=== PATIENT | female | born 1985 | race Caucasian/White ===

== ENCOUNTER 2019-01-28 06:05 | Day surgery (SDC) | payer MEDICAID ==
[~2019-01-28] VITALS: Ht 162.6 cm; Wt 89.8 kg
[2019-01-28] MEDS ORDERED: LACTATED RINGER'S 1,000 ML IV ONE (06:30)
[2019-01-28 06:59] LABS: Hemoglobin 11.8 g/dL (12.2-16.2); Monocytes # (auto) 0.6 uL; White Blood Cell 10.2 10^3/uL (4.4-10.8)
[2019-01-28 07:01] LABS: Basophils # (auto) 0 uL; Basophils % (auto) 0.4 % (0.0-2.0); Eosinophils # (auto) 0.2 uL; Eosinophils % (auto) 1.5 % (0.0-7.0); Hematocrit 36.3 % (36.0-46.0); Lymphocytes # (auto) 2.7 uL; Lymphocytes % (auto) 26.4 % (10.0-50.0); Mean Corpuscular Hgb Conc. 32.4 g/dL (32.0-36.0); Mean Corpuscular Volume 80.2 fL (80.0-100.0); Monocytes % (auto) 5.7 % (0.0-12.0); Neutrophils # (auto) 6.7 uL; Platelet Count (auto) 347 10^3/uL (140-450); Red Blood Cells 4.52 10^6/uL (4.0-5.20); Red Cell Distribution Width 16.7 % (11.8-14.3)
[2019-01-28 07:20] LABS: INR < 0.93 (0.9-1.15)
[2019-01-28 07:28] LABS: Albumin 3.7 g/dL (3.4-5.0); Calcium 8.8 mg/dL (8.5-10.1); Potassium 3.8 mmol/L (3.5-5.1)
[2019-01-28 07:33] LABS: BUN/Creatinine Ratio 13.4; Bilirubin, Total 0.2 mg/dL (0.2-1.0); Total Protein 8.2 g/dL (6.4-8.2)
[2019-01-28 07:39] LABS: Beta HCG, Quantitative < 1 mlU/mL (1-3); Thyroid Stimulating Hormone 5.06 uIU/mL (0.358-3.74)
[2019-01-28 08:19] LABS: Urine Bacteria MANY /hpf (None Seen); Urine Blood 3+ /uL (Negative); Urine Specific Gravity 1.014 (1.001-1.035); Urine WBC 47 /hpf (0 - 5)
[2019-01-28] MEDS ORDERED: ceFAZolin 1GM/50ML 50 ML IV ONE (12:51)
[2019-01-28] MEDS ORDERED: MIDAZOLAM HCL 1MG/1ML-2 ML VIAL ONE (14:16)
[2019-01-28] MEDS ORDERED: MEPERIDINE HCL (25 MG/ML) 1ML VIAL ONE (14:16)
[2019-01-28] MEDS ORDERED: fentaNYL CITRATE 100 MCG/2 ML VL ONE (14:16)
[2019-01-28] MEDS ORDERED: PROPOFOL 10 MG/ML 20 ML IV ONE (14:54)
[2019-01-28] MEDS ORDERED: DexAMETHasone SOD PHOS 10MG/1ML VIAL INJ ONE (14:54)
[2019-01-28] MEDS ORDERED: KETOROLAC TROMETH 30 MG/ML 1ML VIAL ONE (14:54)
[2019-01-28] MEDS ORDERED: LACTATED RINGER'S 1,000 ML IV SCH (15:05)
[2019-01-28] MEDS ORDERED: ONDANSETRON HCL 4 MG/2 ML VIAL IV PRN (15:15)
[2019-01-28 15:49] VITALS: BP 127/70
[2019-01-28] MEDS ORDERED: ePHEDrine SULFATE 50 MG/ML AMP IV PRN (16:00)
[2019-01-28] MEDS ORDERED: MORPHINE SULFATE 4 MG/ML SYR/VIAL IV ONE (16:00)
[2019-01-28] MEDS ORDERED: ACCU-CHEK COMFORT CURVE STRIP VI ONE (16:00)
[2019-01-28] MEDS ORDERED: KETOROLAC TROMETH 15 mg/ml 1ML VL IV ONE (16:00)
[2019-01-28] MEDS ORDERED: MIDAZOLAM HCL 1MG/1ML-2 ML VIAL IV PRN (16:00)
[2019-01-28] MEDS ORDERED: LABETALOL HCL 5 MG/ML 4ML SYRINGE IV PRN (16:00)
[2019-01-28] MEDS ORDERED: HYDROmorphone HCL 2 MG/ML VL IV PRN (16:00)
[2019-01-28] MEDS ORDERED: ONDANSETRON HCL 4 MG/2 ML VIAL IV ONE (16:00)
[2019-01-28] MEDS ORDERED: MIDAZOLAM DRIP 50 mg/50mL 0 ML IV ONE (19:24)
== END 2019-01-28 15:59 | disposition home or self-care (01) ==
LOC: ER 06:05 → SUR 06:06 → ER 13:34 → SUR 15:59
PROVIDERS: ATTEND Specialist
DX: N85.01 Benign endometrial hyperplasia (principal); N93.8 Other specified abnormal uterine and vaginal bleeding; D64.9 Anemia, unspecified; E03.9 Hypothyroidism, unspecified; E66.9 Obesity, unspecified; Z79.899 Other long term (current) drug therapy; Z80.41 Family history of malignant neoplasm of ovary; Z80.3 Family history of malignant neoplasm of breast; Z68.34 Body mass index [BMI] 34.0-34.9, adult
CPT/HCPCS: 36415; 58558; 80053; 81001; 84443; 84702; 85025; 85610; 85730; 86850; 86900; 86901; 88305; J0690; J1100; J1885; J2175; J2250; J2704; J3010; J7030; J7120

== ENCOUNTER 2020-05-27 08:30 | Observation (INO) | payer MEDICAID ==
[~2020-05-27] VITALS: Ht 165.1 cm; Wt 100.7 kg
[~2020-05-27 08:30] MED LIST: FERR-7 PO
[2020-05-27] MEDS ORDERED: PREN-96 PO (09:51)
== END 2020-05-27 10:26 | disposition home or self-care (01) ==
LOC: LDRP 08:30 → UNDOADMOB 08:30 → UNDODISOB 10:26
PROVIDERS: ADMIT Obstetrics & Gynecology; ATTEND Obstetrics & Gynecology
DX: O36.8130 Decreased fetal movements, third trimester, not applicable or unspecified (principal); O62.9 Abnormality of forces of labor, unspecified; O26.893 Other specified pregnancy related conditions, third trimester; N89.8 Other specified noninflammatory disorders of vagina; Z3A.37 37 weeks gestation of pregnancy
CPT/HCPCS: 59025; 76818; 81002; G0378

== ENCOUNTER 2020-05-28 11:04 | Observation (INO) | payer MEDICAID ==
[~2020-05-28 11:04] MED LIST changes: +PREN-96 PO
[2020-05-28 12:06] LABS: Basophils # (auto) 0 10 ^3/uL (0-0.2); Basophils % (auto) 0.2 % (0.0-2.0); Eosinophils # (auto) 0.1 10 ^3/uL (0-0.8); Eosinophils % (auto) 0.4 % (0.0-7.0); Hematocrit 36.7 % (36.0-46.0); Hemoglobin 12.4 g/dL (12.2-16.2); Lymphocytes # (auto) 1.6 10 ^3/uL (0.4-5.4); Lymphocytes % (auto) 11.5 % (10.0-50.0); Mean Corpuscular Hemoglobin 28.6 pg (28.0-32.0); Mean Corpuscular Hgb Conc. 33.8 g/dL (32.0-36.0); Mean Corpuscular Volume 84.8 fL (80.0-100.0); Monocytes # (auto) 0.8 10 ^3/uL (0-1.3); Monocytes % (auto) 5.5 % (0.0-12.0); Neutrophils # (auto) 11.7 10 ^3/uL (1.6-8.6); Neutrophils % (auto) 82.4 % (37.0-80.0); Platelet Count (auto) 299 10^3/uL (140-450); Red Blood Cells 4.33 10^6/uL (4.0-5.20); Red Cell Distribution Width 14.9 % (11.8-14.3); White Blood Cell 14.2 10^3/uL (4.4-10.8)
[2020-05-28 12:16] LABS: Urine Bacteria FEW /hpf (None Seen); Urine Blood Negative /uL (Negative); Urine Hyaline Cast FEW /lpf (0 - 2); Urine Mucus FEW (None Seen); Urine Specific Gravity 1.011 (1.001-1.035); Urine WBC 66 /hpf (0 - 5)
[2020-05-28 12:35] LABS: INR 0.95 (0.9-1.15); Partial Thromboplastin Time 26.2 sec (23.0-31.2)
[2020-05-28 13:47] LABS: BUN/Creatinine Ratio 7.1
[2020-05-28 13:48] LABS: Albumin 2.6 g/dL (3.4-5.0); Bilirubin, Total 0.3 mg/dL (0.2-1.0); Calcium 9.2 mg/dL (8.5-10.1); Total Protein 6.9 g/dL (6.4-8.2); Uric Acid 5.1 mg/dL (2.6-6.0)
== END 2020-05-28 14:30 | disposition home or self-care (01) ==
LOC: LDRP 11:04
PROVIDERS: ADMIT Specialist; ATTEND Specialist
DX: O13.3 Gestational [pregnancy-induced] hypertension without significant proteinuria, third trimester (principal); Z3A.37 37 weeks gestation of pregnancy
CPT/HCPCS: 36415; 59025; 76818; 80053; 81001; 81002; 82575; 84550; 85025; 85610; 85730; G0378

== ENCOUNTER 2020-06-04 10:24 | Observation (INO) | payer MEDICAID ==
[~2020-06-04 10:24] MED LIST changes: -FERR-7 PO
== END 2020-06-04 12:10 | disposition home or self-care (01) ==
LOC: LDRP 10:24
PROVIDERS: ADMIT Specialist; ATTEND Specialist
DX: O14.93 Unspecified pre-eclampsia, third trimester (principal); Z3A.38 38 weeks gestation of pregnancy
CPT/HCPCS: 59025; 76818; 81002; G0378

== ENCOUNTER 2020-06-07 09:01 | Observation (INO) | payer MEDICAID | END 2020-06-07 11:40 | disposition home or self-care (01) | LOC: LDRP 09:01 | PROVIDERS: ADMIT Specialist; ATTEND Specialist | DX: O14.93 Unspecified pre-eclampsia, third trimester (principal); O62.9 Abnormality of forces of labor, unspecified; Z3A.38 38 weeks gestation of pregnancy | CPT/HCPCS: 59025; 76818; 81002; G0378 ==

== ENCOUNTER 2020-06-11 09:09 | Observation (INO) | payer MEDICAID | END 2020-06-11 10:47 | disposition home or self-care (01) | LOC: LDRP 09:09 | PROVIDERS: ADMIT Specialist; ATTEND Specialist | DX: O13.3 Gestational [pregnancy-induced] hypertension without significant proteinuria, third trimester (principal); O14.93 Unspecified pre-eclampsia, third trimester; Z3A.39 39 weeks gestation of pregnancy; Z91.040 Latex allergy status | CPT/HCPCS: 59025; 76818; 81002; G0378 ==

== ENCOUNTER 2020-06-14 09:08 | Observation (INO) | payer MEDICAID | END 2020-06-14 10:50 | disposition home or self-care (01) | LOC: LDRP 09:08 | PROVIDERS: ADMIT Specialist; ATTEND Specialist | DX: O14.93 Unspecified pre-eclampsia, third trimester (principal); O62.9 Abnormality of forces of labor, unspecified; Z3A.39 39 weeks gestation of pregnancy; Z79.899 Other long term (current) drug therapy; Z91.040 Latex allergy status | CPT/HCPCS: 59025; 76818; 81002; G0378 ==

== ENCOUNTER 2020-06-15 06:55 | Observation (INO) | payer MEDICAID ==
[~2020-06-15] VITALS: Ht 165.1 cm; Wt 102.1 kg
[2020-06-15 08:25] LABS: Basophils # (auto) 0 10 ^3/uL (0-0.2); Basophils % (auto) 0.2 % (0.0-2.0); Eosinophils # (auto) 0.1 10 ^3/uL (0-0.8); Eosinophils % (auto) 0.9 % (0.0-7.0); Hematocrit 35.5 % (36.0-46.0); Lymphocytes # (auto) 1.9 10 ^3/uL (0.4-5.4); Lymphocytes % (auto) 13.7 % (10.0-50.0); Mean Corpuscular Hemoglobin 29.1 pg (28.0-32.0); Mean Corpuscular Hgb Conc. 33.8 g/dL (32.0-36.0); Mean Corpuscular Volume 85.9 fL (80.0-100.0); Monocytes # (auto) 0.6 10 ^3/uL (0-1.3); Monocytes % (auto) 4.4 % (0.0-12.0); Neutrophils # (auto) 11.4 10 ^3/uL (1.6-8.6); Neutrophils % (auto) 80.8 % (37.0-80.0); Platelet Count (auto) 288 10^3/uL (140-450); Red Blood Cells 4.13 10^6/uL (4.0-5.20); Red Cell Distribution Width 14.8 % (11.8-14.3); White Blood Cell 14.1 10^3/uL (4.4-10.8)
[2020-06-15 08:45] LABS: Albumin 2.4 g/dL (3.4-5.0); Calcium 8.3 mg/dL (8.5-10.1); Potassium 3.6 mmol/L (3.5-5.1)
[2020-06-15 08:47] LABS: Urine Bacteria FEW /hpf (None Seen); Urine Blood Negative /uL (Negative); Urine Specific Gravity 1.008 (1.001-1.035); Urine WBC 16 /hpf (0 - 5)
[2020-06-15 08:50] LABS: BUN/Creatinine Ratio 8.2; Bilirubin, Total 0.3 mg/dL (0.2-1.0); INR 0.95 (0.9-1.15); Partial Thromboplastin Time 26.8 sec (23.0-31.2); Total Protein 6.4 g/dL (6.4-8.2); Uric Acid 5.1 mg/dL (2.6-6.0)
[2020-06-15 09:10] LABS: Protein, Urine 11.2 mg/dL (0.0-11.9)
== END 2020-06-15 09:45 | disposition home or self-care (01) ==
LOC: LDRP 06:55 → UNDOADMOB 06:55 → UNDODISOB 09:45
PROVIDERS: ADMIT Specialist; ATTEND Specialist
DX: O48.0 Post-term pregnancy (principal); O62.9 Abnormality of forces of labor, unspecified; Z91.040 Latex allergy status; Z3A.40 40 weeks gestation of pregnancy; Z79.899 Other long term (current) drug therapy
CPT/HCPCS: 36415; 59025; 80053; 81001; 82570; 84156; 84550; 85025; 85610; 85730; G0378

== ENCOUNTER 2020-06-17 09:30 | Observation (INO) | payer MEDICAID | END 2020-06-17 11:40 | disposition home or self-care (01) | LOC: LDRP 09:30 → UNDOADMOB 09:30 → UNDODISOB 11:40 | PROVIDERS: ADMIT Specialist; ATTEND Specialist | DX: O48.0 Post-term pregnancy (principal); Z3A.40 40 weeks gestation of pregnancy; Z91.040 Latex allergy status | CPT/HCPCS: 59025; 76818; 81002; G0378 ==

== ENCOUNTER 2020-06-19 08:17 | Observation (INO) | payer MEDICAID | END 2020-06-19 09:50 | disposition home or self-care (01) | LOC: LDRP 08:17 | PROVIDERS: ADMIT Specialist; ATTEND Specialist | DX: O48.0 Post-term pregnancy (principal); Z20.828 Contact with and (suspected) exposure to other viral communicable diseases; Z3A.40 40 weeks gestation of pregnancy | CPT/HCPCS: 59025; 76818; 81002; G0378; U0003 ==

== ENCOUNTER 2020-06-20 08:00 | Inpatient (IN) | payer MEDICAID ==
[~2020-06-20] VITALS: Ht 162.6 cm; Wt 102.1 kg
[2020-06-20] MEDS ORDERED: DERMOPLAST 60ML BOTTLE TOP PRN (08:15)
[2020-06-20] MEDS ORDERED: PROMETHAZINE HCL 25 MG/ML 1ML IV PRN (08:15)
[2020-06-20] MEDS ORDERED: WITCH HAZEL-GLYCERIN PAD TOP PRN (08:15)
[2020-06-20] MEDS ORDERED: PHISODERM TOP SOLN 240ML BTL TOP PRN (08:15)
[2020-06-20] MEDS ORDERED: BUTORPHANOL TARTRATE 2 MG/1 ML VIAL IV PRN ×2 (08:15)
[2020-06-20] MEDS ORDERED: LIDOCAINE 2%HCL (LOCAL ANESTH.) INJ 20ML MDV IJ PRN (08:15)
[2020-06-20] MEDS: LACTATED RINGER'S 1,000 ML IV SCH ×2 (09:25→18:25)
[2020-06-20 09:27] LABS: Urine Bacteria FEW /hpf (None Seen); Urine Blood Negative /uL (Negative); Urine Specific Gravity 1.007 (1.001-1.035); Urine WBC 14 /hpf (0 - 5)
[2020-06-20 09:39] LABS: Basophils # (auto) 0 10 ^3/uL (0-0.2); Basophils % (auto) 0.1 % (0.0-2.0); Eosinophils # (auto) 0.1 10 ^3/uL (0-0.8); Eosinophils % (auto) 0.6 % (0.0-7.0); Hematocrit 38.9 % (36.0-46.0); Hemoglobin 12.8 g/dL (12.2-16.2); Lymphocytes % (auto) 13.3 % (10.0-50.0); Mean Corpuscular Hemoglobin 28.5 pg (28.0-32.0); Mean Corpuscular Volume 86.3 fL (80.0-100.0); Monocytes % (auto) 6.3 % (0.0-12.0); Neutrophils # (auto) 11.9 10 ^3/uL (1.6-8.6); Neutrophils % (auto) 79.7 % (37.0-80.0); Platelet Count (auto) 319 10^3/uL (140-450); Red Blood Cells 4.51 10^6/uL (4.0-5.20)
[2020-06-20 09:44] LABS: Albumin 2.7 g/dL (3.4-5.0); Calcium 9.1 mg/dL (8.5-10.1); Potassium 3.8 mmol/L (3.5-5.1)
[2020-06-20 09:47] LABS: BUN/Creatinine Ratio 8.5; Bilirubin, Total 0.2 mg/dL (0.2-1.0); Total Protein 7.2 g/dL (6.4-8.2)
[2020-06-20 09:58] LABS: Amphetamine Screen, Urine NEGATIVE (NEGATIVE); Barbiturate Scree,Urine NEGATIVE (NEGATIVE); Benzodiazephine Screen, Urine NEGATIVE (NEGATIVE); Cannabinoid Screen, Urine NEGATIVE (NEGATIVE); Cocaine Screen, Urine NEGATIVE (NEGATIVE); Opiate Scree,Urine NEGATIVE (NEGATIVE); Phencyclidine Screen, Urine NEGATIVE (NEGATIVE)
[2020-06-20 10:00] LABS: Alcohol, Urine < 3.0 mg/dL (0-10)
[2020-06-20] MEDS ORDERED: PENICILLIN G POT 5MIL/D5 50ML 50 ML IV ONE (10:00)
[2020-06-20 10:20] LABS: INR 0.91 (0.9-1.15); Partial Thromboplastin Time 26.1 sec (23.0-31.2)
[2020-06-20] MEDS: miSOPROStol 50 MCG per PRE-CUT 1/2 TAB PO PRN ×2 (10:25→17:25)
[2020-06-20] MEDS: PENICILLIN G POTASSIUM 2,500,000 UNITS in D5W 5% 50 ML IV SCH ×3 (14:54→22:33)
[2020-06-20] MEDS ORDERED: fentaNYL CITRATE 100 MCG/2 ML VL IV ONE ×3 (20:45→23:45)
[2020-06-20] MEDS ORDERED: ROPIVACAINE HCL 100 ML EPI SCH (20:45)
[2020-06-20] MEDS ORDERED: ePHEDrine SULFATE 50 MG/ML AMP IV ONE ×4 (20:45→21:45)
[2020-06-20] MEDS ORDERED: LIDOCAINE HCL 2 %PF INJ 10ML AMP IJ ONE ×3 (20:45→23:45)
[2020-06-20] MEDS ORDERED: NALOXONE HCL 0.4 MG/ML VIAL IV ONE ×4 (20:45→21:45)
[2020-06-20] MEDS ORDERED: ROPIVACAINE HCL 400mg/200ml BAG (2mg/ml) ONE (21:13)
[2020-06-20] MEDS ORDERED: ROPIVACAINE HCL 200 ML EPI SCH ×3 (21:15→21:45)
[2020-06-20] MEDS ORDERED: LACTATED RINGER'S 1,000 ML IV ONE (21:45)
[2020-06-20] MEDS: LACT. RINGERS/OXYTOCIN 20UNITS 1,000 ML IV PRN (22:02)
[2020-06-21] MEDS ORDERED: miSOPROStol 100 mcg TAB SL ONE (00:51)
[2020-06-21] MEDS ORDERED: miSOPROStol 100 mcg TAB PR ONE (00:51)
[2020-06-21] MEDS ORDERED: METHYLERGONOVINE MALEATE 0.2 MG/ML AMP IM ONE (00:53)
[2020-06-21] MEDS ORDERED: miSOPROStol 100 mcg TAB ONE (00:53)
[2020-06-21] MEDS: LACT. RINGERS/OXYTOCIN 20UNITS 1,000 ML IV PRN (01:36)
[2020-06-21] MEDS ORDERED: RHO (D) IMMUNE GLOBULIN 300 MCG INJ IM ONE (04:00)
--- NOTE | 2020-06-21 04:30 | NUR ---
Ambulation: Patient OOB with standby assistance by RN. Patient ambulated to bathroom with steady gait. Patient unable to void at this time. [facility] teaching provided with returned demonstration by patient. Clean gown provided and bed linen changed. Patient ambulated back to bed with steady gait and no distress noted.
--- NOTE | 2020-06-21 04:40 | NUR ---
Epidural cath removed, blue tip intact. PT tolerated well.
[2020-06-21 06:45] VITALS: BP 122/72
--- NOTE | 2020-06-21 07:00 | NUR ---
SBAR DR Oscar on Drainage on lower left side of dressing amount for 5am and 7am. Dr Grande to come in assess. Orders to change vitals signs to q4hr. orders to advance to post op day 1 orders. Addendum: 06/21/20 at 0753 by SILVIA PEREZ RN RN wrong pt
--- NOTE | 2020-06-21 07:45 | NUR ---
Dr Grande at bedside assessed drainage on dressing orders to change dressing on PM shift. Addendum: 06/21/20 at 0752 by SILVIA PEREZ RN RN wrong pt./
[2020-06-21] MEDS: IBUPROFEN 600 MG TAB PO PRN ×2 (10:29→16:43)
[2020-06-21 11:45] VITALS: BP 121/61
[2020-06-21 15:37] VITALS: BP 139/63
--- NOTE | 2020-06-21 18:10 | NUR ---
Received care and report from Reynaldo Mercedes.
[2020-06-21 19:00] VITALS: BP_SYST 139; BP_SYST 143; BP_DIAS 80; BP_DIAS 84
[2020-06-21 22:43] VITALS: BP 141/70
[2020-06-22 02:50] VITALS: BP 127/76
[2020-06-22 06:40] VITALS: BP 136/74
--- NOTE | 2020-06-22 10:38 | NUR ---
IV removal 20G IV DC'd from Right wrist with clean sterile technique, catheter fully intact. Pressure dressing applied to site. Patient tolerated well.
[2020-06-22 11:20] VITALS: BP 148/85
--- NOTE | 2020-06-22 11:30 | NUR ---
Discharge: Discharge instructions given as ordered. Patient received Save you life handout with teaching from RN. Pt encouraged to follow up with Dr Oscar on 07/05/20 @ 0900 . All questions and concerns addressed. Patient verbalized understanding. Medication reconciliation completed and copy given to patient. All required/requested vaccines given and copies of vaccinations given to patient. Patient encouraged to prepare to depart unit.
--- NOTE | 2020-06-22 11:47 | NUR ---
Discharge: Patient ambulates vehicle with copies of paperwork and all personal belongings, accompanied by staff and family member. No distress noted at time of departure, no adverse changes in status since initial assessment.
== END 2020-06-22 11:47 | disposition home or self-care (01) | DRG 560 ==
LOC: LDRP 08:00
PROVIDERS: ADMIT Specialist; ATTEND Specialist
PROC: 10E0XZZ Delivery of Products of Conception, External Approach (ICD-10-PCS; principal; 2020-06-21)
PROC: 3E0R3BZ Introduction of Anesthetic Agent into Spinal Canal, Percutaneous Approach (ICD-10-PCS; 2020-06-21)
PROC: 00HU33Z Insertion of Infusion Device into Spinal Canal, Percutaneous Approach (ICD-10-PCS; 2020-06-21)
PROC: 10907ZC Drainage of Amniotic Fluid, Therapeutic from Products of Conception, Via Natural or Artificial Opening (ICD-10-PCS; 2020-06-21)
PROC: 3E0234Z Introduction of Serum, Toxoid and Vaccine into Muscle, Percutaneous Approach (ICD-10-PCS; 2020-06-21)
DX: O99.824 Streptococcus B carrier state complicating childbirth (principal); O13.4 Gestational [pregnancy-induced] hypertension without significant proteinuria, complicating childbirth; O48.0 Post-term pregnancy; O62.3 Precipitate labor; Z37.0 Single live birth; Z3A.40 40 weeks gestation of pregnancy
CPT/HCPCS: 36415; 59025; 59409; 62282; 80053; 80307; 81001; 81002; 85025; 85610; 85730; 86592; 86850; 86900; 86901; 90384; 96360; 96361; 96365; 96366; G0378; J2540; J2590; J7060

== ENCOUNTER 2020-12-07 07:40 | Day surgery (SDC) | payer MEDICAID ==
[2020-12-04 13:19] LABS: Basophils # (auto) 0.1 10 ^3/uL (0-0.2); Hemoglobin 13.1 g/dL (12.2-16.2); Monocytes # (auto) 0.8 10 ^3/uL (0-1.3); Nucleated Red Blood Cells % 0.1 %
[2020-12-04 13:20] LABS: Basophils % (auto) 0.5 % (0.0-2.0); Eosinophils # (auto) 0.1 10 ^3/uL (0-0.8); Hematocrit 39.1 % (36.0-46.0); Lymphocytes # (auto) 3.6 10 ^3/uL (0.4-5.4); Lymphocytes % (auto) 25.7 % (10.0-50.0); Mean Corpuscular Hemoglobin 26.1 pg (28.0-32.0); Mean Corpuscular Hgb Conc. 33.4 g/dL (32.0-36.0); Monocytes % (auto) 5.7 % (0.0-12.0); Neutrophils # (auto) 9.5 10 ^3/uL (1.6-8.6); Neutrophils % (auto) 67.1 % (37.0-80.0); Platelet Count (auto) 390 10^3/uL (140-450); Red Blood Cells 5.01 10^6/uL (4.0-5.20); Red Cell Distribution Width 15.4 % (11.8-14.3); White Blood Cell 14.2 10^3/uL (4.4-10.8)
[2020-12-04 13:24] LABS: Urine Bacteria MOD /hpf (None Seen); Urine Blood Negative /uL (Negative); Urine Mucus FEW (None Seen); Urine Specific Gravity 1.019 (1.001-1.035); Urine WBC 3 /hpf (0 - 5)
[2020-12-04 13:31] LABS: INR 0.97 (0.9-1.15); Partial Thromboplastin Time 29.6 sec (23.0-31.2)
[2020-12-04 13:48] LABS: Albumin 3.8 g/dL (3.4-5.0); Calcium 8.9 mg/dL (8.5-10.1); Potassium 3.5 mmol/L (3.5-5.1)
[2020-12-04 13:51] LABS: BUN/Creatinine Ratio 12.8; Bilirubin, Total 0.3 mg/dL (0.2-1.0); Total Protein 8.2 g/dL (6.4-8.2)
[~2020-12-07] VITALS: Ht 165.1 cm; Wt 104.3 kg
[2020-12-07] MEDS ORDERED: ceFAZolin 1GM/50ML 100 ML IV ONE (08:42)
[2020-12-07] MEDS ORDERED: LABETALOL HCL 5 MG/ML 4ML SYRINGE IV PRN (10:30)
[2020-12-07] MEDS ORDERED: MORPHINE SULFATE 4 MG/ML SYR/VIAL IV PRN (10:30)
[2020-12-07] MEDS ORDERED: ePHEDrine SULFATE 50 MG/ML AMP IV PRN (10:30)
[2020-12-07] MEDS ORDERED: MIDAZOLAM HCL 1MG/1ML-2 ML VIAL IV PRN (10:30)
[2020-12-07] MEDS ORDERED: HYDROmorphone HCL 2 MG/ML VL IV PRN (10:30)
[2020-12-07] MEDS ORDERED: ONDANSETRON HCL 4 MG/2 ML VIAL IV PRN ×2 (10:30→11:30)
[2020-12-07] MEDS ORDERED: MIDAZOLAM HCL 1MG/1ML-2 ML VIAL ONE (10:37)
[2020-12-07] MEDS ORDERED: MEPERIDINE HCL (25 MG/ML) 1ML VIAL ONE (10:37)
[2020-12-07] MEDS ORDERED: fentaNYL CITRATE 100 MCG/2 ML VL ONE (10:37)
[2020-12-07] MEDS ORDERED: DexAMETHasone SOD PHOS 10MG/1ML VIAL INJ ONE (11:10)
[2020-12-07] MEDS ORDERED: PROPOFOL 10 MG/ML 20 ML IV ONE (11:14)
[2020-12-07] MEDS ORDERED: LACTATED RINGER'S 1,000 ML IV SCH (11:30)
[2020-12-07 12:00] VITALS: BP 108/56
== END 2020-12-07 12:10 | disposition home or self-care (01) ==
LOC: SUR 07:40
PROVIDERS: ATTEND Specialist
DX: N93.8 Other specified abnormal uterine and vaginal bleeding (principal); N85.00 Endometrial hyperplasia, unspecified; E66.01 Morbid (severe) obesity due to excess calories; Z68.38 Body mass index [BMI] 38.0-38.9, adult; Z98.890 Other specified postprocedural states; Z20.822 Contact with and (suspected) exposure to COVID-19; Z79.899 Other long term (current) drug therapy
CPT/HCPCS: 36415; 58558; 80053; 81001; 81025; 84702; 85025; 85610; 85730; 86850; 86900; 86901; J0690; J1100; J2175; J2250; J2704; J3010; U0003